=== PATIENT | female | born 1985 | race American Indian/Alaskan Native ===

== ENCOUNTER 2016-10-25 03:44 | Outpatient (CLI) | payer MEDICAID ==
[2016-10-25 04:16] VITALS: BP 119/67
[2016-10-25 05:09] LABS: Bilirubin,Urine NEG (Negative); Blood,Urine NEG (Negative); Ketones,Urine NEG (Negative); Leukocyte Esterase,Urine NEG (Negative); Nitrite,Urine NEG (Negative); Protein,Urine <15 mg/dL mg/dL (Negative); Urobilinogen,Urine < 2.0 mg/dL (<2.0)
== END 2016-10-25 04:50 | disposition left against medical advice (07) ==
LOC: TRG 03:44
PROVIDERS: ATTEND Obstetrics & Gynecology
DX: O47.1 False labor at or after 37 completed weeks of gestation (principal); Z3A.38 38 weeks gestation of pregnancy
CPT/HCPCS: 81001

== ENCOUNTER 2016-10-30 22:49 | Inpatient (IN) | payer MEDICAID ==
[2016-10-30] MEDS ORDERED: PHENERGAN PO PRN (23:21)
[2016-10-30] MEDS ORDERED: SUBLIMAZE IV PRN (23:21)
[2016-10-30] MEDS ORDERED: ePHEDrine SULFATE IV PRN (23:21)
[2016-10-30] MEDS ORDERED: BRETHINE SUB-Q PRN (23:21)
[2016-10-30] MEDS ORDERED: POLYCILLIN/NS 2 GM/100 ML 2 GM/100 ML BAG IV ONE (23:21)
[2016-10-30] MEDS ORDERED: MINERAL OIL PO PRN (23:21)
[2016-10-30] MEDS ORDERED: XYLOCAINE 2% INFILTRATI ONE (23:21)
[2016-10-30] MEDS ORDERED: STADOL IV PRN (23:21)
[2016-10-30] MEDS ORDERED: BRETHINE IVP PRN (23:21)
[2016-10-30] MEDS ORDERED: ZOFRAN IV PRN (23:21)
[2016-10-30] MEDS ORDERED: NARCAN 0.4 MG/1 ML IV PRN (23:21)
--- NOTE | 2016-10-30 23:29 | History and Physical Report ---
History of Present Illness Date of examination: 10/30/16 Chief complaint: Labor History of present illness: Pt is a 31yo BF EDC 11/03/16; EGA 39 3/7 weeks presents to L&D complaining of RUC's q 3-5 mins. She received care at [facility] without issues, however records are not available. Past History Past Medical History: no pertinent history Past Surgical History: no surgical history Social history: no significant social history, single - Obstetrical History Expected Date of Delivery: 11/03/16 Actual Gestation: 39 Week(s) 4 Day(s) : 1 Medications and Allergies Allergies Allergy/AdvReac Type Severity Reaction Status Date / Time No Known Allergies Allergy Unverified 10/25/16 04:16 Review of Systems All systems: negative - Vital Signs Vital signs: Vital Signs Temp Pulse Resp BP 98.2 F 97 H 18 121/68 10/30/16 23:09 10/30/16 23:09 10/30/16 23:09 10/30/16 23:09 Temp Pulse Resp BP Pulse Ox 98.2 F 97 H 18 121/68 10/30/16 23:09 10/30/16 23:09 10/30/16 23:09 10/30/16 23:09 - Physical Exam Breasts: Positive: deferred Cardiovascular: Regular rate Lungs: Positive: Clear to auscultation Abdomen: Positive: normal appearance Genitourinary (Female): Positive: normal external genitalia Vagina: Positive: normal moisture Uterus: Positive: enlarged Extremities: Positive: normal - Obstetrical FHR: category 1 Uterine Contraction Monitor Mode: External Cervical Dilatation: 5 Cervical Effacement Percentage: 70 station: -2 Uterine Contraction Pattern: Regular Uterine Tone Measurement Phase: Contraction Results Result Diagrams: 10/30/16 23:40 All other labs normal. Assessment and Plan - Patient Problems (1) 39 weeks gestation of Onset Date: 10/30/16 Current Visit: Yes Status: Acute Plan to address problem: A: IUP @ 39 3/7 weeks in labor Unknown GBS P: Admit to L&D for expectant vaginal delivery
[2016-10-30] MEDS ORDERED: PITOCin/NS 20 UNIT/1000ML DRIP 20 UNITS/1,000 ML BAG IV SCH (23:45)
[2016-10-30] MEDS ORDERED: PITOCin/NS 30 UNIT/500ML 30 UNITS/500 ML BAG IV SCH (23:45)
[2016-10-30] MEDS: LACTATED RINGERS 1,000 ML IV SCH (23:50)
[2016-10-31 00:11] LABS: Hematocrit 32.8 % (30.3-42.9); Hemoglobin 10.4 gm/dl (10.1-14.3); Mean Corpuscular HGB Conc 32 % (30-34); Mean Corpuscular Volume 80 fl (79-97); Red Blood Count 4.11 M/mm3 (3.65-5.03); Red Cell Distribution Width 17.5 % (13.2-15.2); White Blood Count 14.6 K/mm3 (4.5-11.0)
[2016-10-31 00:15] LABS: Mean Corpuscular Hemoglobin 25 pg (28-32); Platelet Count 243 K/mm3 (140-440)
[2016-10-31] MEDS: LACTATED RINGERS 1,000 ML IV SCH (01:32)
[2016-10-31] MEDS ORDERED: ePHEDrine SULFATE ONE (01:45)
[2016-10-31] MEDS ORDERED: ePHEDrine SULFATE IV PRN (02:23)
[2016-10-31] MEDS ORDERED: NARCAN 2 MG/2 ML IV PRN (02:23)
--- NOTE | 2016-10-31 02:23 | Anesthesia Consultation ---
Anesthesia Consult and Med Hx Date of service: 10/31/16 - Airway Anesthetic Teeth Evaluation: Good ROM Head & Neck: Adequate Mental/Hyoid Distance: Adequate Mallampati Class: Class II Intubation Access Assessment: Probably Good - Pulmonary Exam CTA: Yes - Cardiac Exam Cardiac Exam: RRR - Pre-Operative Health Status ASA Pre-Surgery Classification: ASA2 Proposed Anesthetic Plan: Epidural, Spinal - Pulmonary Hx Asthma: No COPD: No Hx Pneumonia: No - Cardiovascular System Hx Hypertension: No - Central Nervous System Hx Seizures: No Hx Psychiatric Problems: No - Endocrine Hx Renal Disease: No Hx End Stage Renal Disease: No Hx Hypothyroidism: No Hx Hyperthyroidism: No - Hematic Hx Anemia: No Hx Sickle Cell Disease: No - Other Systems Hx Alcohol Use: Yes - Additional Comments Anesthesia Medical History Comments: +IUP
[2016-10-31] MEDS ORDERED: fentaNYL-BUPIV 2 MCG/ML-0.125% 200 MCG/100 ML BAG EPIDURAL SCH (03:00)
[2016-10-31] MEDS ORDERED: POLYCILLIN/NS 1 GM/50 ML 1 GM/50 ML BAG IV SCH (03:23)
--- NOTE | 2016-10-31 07:24 | Progress Note ---
Assessment and Plan A: at 39 weeks in active labor -Cat 2 tracing (good return to baseline and moderate variability present) P: -Continue position changes and oxygen -Epidural off to allow better pushing -Reassess in ~ 30 minutes - Patient Problems (1) 39 weeks gestation of Onset Date: 10/30/16 Current Visit: Yes Status: Acute Subjective - Subjective Date of service: 10/31/16 Interval history: Patient seen and examined, 10 cm at 0 station, OP position. Patient having variable decelerations with each contraction but with good return to baseline. Pitocin currently discontinued and FSE placed Patient reports: new complaints, contractions Objective - Vital Signs Vital Signs: Vital Signs - 12hr 10/30/16 10/30/16 10/30/16 23:09 23:40 23:48 Temperature 98.2 F 99.5 F Pulse Rate 97 H 76 105 H Respiratory 18 20 Rate Blood Pressure 121/68 117/69 O2 Sat by Pulse 100 Oximetry 10/30/16 10/30/16 10/31/16 23:53 23:58 00:00 Temperature Pulse Rate 90 102 H Respiratory 20 Rate Blood Pressure O2 Sat by Pulse 99 97 Oximetry 10/31/16 10/31/16 10/31/16 00:02 00:03 00:08 Temperature Pulse Rate 96 H 106 H 79 Respiratory Rate Blood Pressure O2 Sat by Pulse 92 90 99 Oximetry 10/31/16 10/31/16 10/31/16 00:13 00:18 00:23 Temperature Pulse Rate 83 78 76 Respiratory Rate Blood Pressure O2 Sat by Pulse 98 99 98 Oximetry 10/31/16 10/31/16 10/31/16 00:26 00:28 00:33 Temperature Pulse Rate 78 72 88 Respiratory Rate Blood Pressure 117/68 O2 Sat by Pulse 99 97 Oximetry 10/31/16 10/31/16 10/31/16 00:38 00:43 00:48 Temperature Pulse Rate 100 H 77 72 Respiratory Rate Blood Pressure O2 Sat by Pulse 96 98 96 Oximetry 10/31/16 10/31/16 10/31/16 00:51 00:53 00:58 Temperature Pulse Rate 86 84 86 Respiratory Rate Blood Pressure O2 Sat by Pulse 93 97 97 Oximetry 10/31/16 10/31/16 10/31/16 01:03 02:03 02:04 Temperature Pulse Rate 83 92 H 104 H Respiratory Rate Blood Pressure O2 Sat by Pulse 96 98 94 Oximetry 10/31/16 10/31/16 10/31/16 02:05 02:07 02:08 Temperature Pulse Rate 107 H 94 H 92 H Respiratory Rate Blood Pressure 112/55 112/61 O2 Sat by Pulse 100 Oximetry 10/31/16 10/31/16 10/31/16 02:09 02:11 02:12 Temperature Pulse Rate 96 H 84 71 Respiratory Rate Blood Pressure 111/64 86/66 96/54 O2 Sat by Pulse Oximetry 10/31/16 10/31/16 10/31/16 02:13 02:15 02:17 Temperature Pulse Rate 89 76 121 H Respiratory Rate Blood Pressure 99/64 101/63 O2 Sat by Pulse 97 83 L Oximetry 10/31/16 10/31/16 10/31/16 02:18 02:19 02:21 Temperature Pulse Rate 93 H 90 95 H Respiratory Rate Blood Pressure 108/57 111/70 112/63 O2 Sat by Pulse 97 Oximetry 10/31/16 10/31/16 10/31/16 02:23 02:25 02:28 Temperature Pulse Rate 112 H 89 78 Respiratory Rate Blood Pressure 106/59 113/63 O2 Sat by Pulse 98 100 Oximetry 10/31/16 10/31/16 10/31/16 02:32 02:33 02:37 Temperature Pulse Rate 85 87 99 H Respiratory Rate Blood Pressure 102/55 103/57 O2 Sat by Pulse 99 Oximetry 10/31/16 10/31/16 10/31/16 02:38 02:42 02:43 Temperature Pulse Rate 79 90 98 H Respiratory Rate Blood Pressure 111/62 O2 Sat by Pulse 100 99 Oximetry 10/31/16 10/31/16 10/31/16 02:46 02:48 02:53 Temperature Pulse Rate 88 115 H 80 Respiratory Rate Blood Pressure O2 Sat by Pulse 94 99 100 Oximetry 10/31/16 10/31/16 10/31/16 02:58 03:03 03:08 Temperature Pulse Rate 92 H 97 H 94 H Respiratory Rate Blood Pressure 108/63 O2 Sat by Pulse 99 98 100 Oximetry 10/31/16 10/31/16 10/31/16 03:13 03:15 03:18 Temperature Pulse Rate 87 97 H 82 Respiratory Rate Blood Pressure 107/67 O2 Sat by Pulse 99 99 Oximetry 0810/31/16 10/31/16 03:23 03:28 03:29 Temperature Pulse Rate 87 91 H 89 Respiratory Rate Blood Pressure 108/65 O2 Sat by Pulse 99 100 Oximetry 10/31/16 10/31/16 10/31/16 03:33 03:38 03:43 Temperature Pulse Rate 93 H 89 90 Respiratory Rate Blood Pressure O2 Sat by Pulse 100 100 100 Oximetry 10/31/16 10/31/16 10/31/16 03:44 03:48 03:53 Temperature Pulse Rate 97 H 98 H 91 H Respiratory Rate Blood Pressure 109/59 O2 Sat by Pulse 98 99 Oximetry 10/31/16 10/31/16 10/31/16 03:58 04:00 04:03 Temperature 98.8 F Pulse Rate 90 91 H Respiratory 18 Rate Blood Pressure 111/61 111/61 O2 Sat by Pulse 93 100 77 L Oximetry 10/31/16 10/31/16 10/31/16 05:05 05:58 07:16 Temperature 100.1 F H Pulse Rate 91 H 86 93 H Respiratory 18 Rate Blood Pressure 111/61 107/57 101/56 O2 Sat by Pulse 100 86 Oximetry 10/31/16 07:17 Temperature 97.6 F Pulse Rate 79 Respiratory 20 Rate Blood Pressure 107/57 O2 Sat by Pulse Oximetry - Exam FHR: category 2 Cervical Dilatation: 10 station: 0 - Labs Labs: Abnormal Labs 10/30/16 23:40 WBC 14.6 H MCH 25 L RDW 17.5 H Laboratory Results - last 24 hr 10/30/16 10/30/16 23:40 23:40 WBC 14.6 H RBC 4.11 Hgb 10.4 Hct 32.8 MCV 80 MCH 25 L MCHC 32 RDW 17.5 H Plt Count 243 Blood Type O POSITIVE Antibody Screen Negative
[2016-10-31] MEDS ORDERED: BICITRA ONE (08:17)
[2016-10-31] MEDS ORDERED: PEPCID IV ONE (08:17)
[2016-10-31] MEDS ORDERED: REGLAN ONE (08:17)
--- NOTE | 2016-10-31 08:29 | Anesthesia Day of Surgery ---
Anesthesia Day of Surgery - Day of Surgery Patient Examined: Yes Patient H&P Reviewed: Yes Patient is NPO: Yes
[2016-10-31] MEDS ORDERED: MORPHINE ONE ×2 (09:02)
[2016-10-31] MEDS ORDERED: WATER FOR IRRIG STERILE IR ONE (09:23)
[2016-10-31] MEDS ORDERED: NACL 0.9% IR ONE (09:23)
[2016-10-31] MEDS ORDERED: DILAUDID IV PRN (09:30)
--- NOTE | 2016-10-31 09:43 | Event Note ---
Date: 10/31/16 Patient with continuing deep variable decelerations and no descent. Patient appears an OP position we'll proceed to primary
--- NOTE | 2016-10-31 09:49 | Operative Report ---
Operative Report Operative Report: DATE: 10/31/2016 PREOPERATIVE DIAGNOSIS: 31-year-old at 39 weeks, category 2 tracing, arrest of descent POSTOP DIAGNOSIS: As above plus tight constriction between the upper fundus of the uterus and lower segment (Bandls band) NAME OF PROCEDURE: Primary low transverse section SURGEON: REYNA SCHMIDT MD MUSIC ENGINEER: [] ANESTHESIA: Epidural EBL: 600 mL PATHOLOGY SPECIMEN: None URINE OUTPUT: 300 mL FINDINGS: Male infant in cephalic presentation, OP position, time of was 8 :57 AM, infant weight was 6 lbs. 6 oz. or 2884 g, Apgars were 8 and 9, Bandl's band noted between fundus and lower segment, otherwise normal uterus tubes and ovaries bilaterally. DESCRIPTION OF PROCEDURE: After informed consent, patient was taken to the operating room where she was prepped and draped in a sterile fashion. Pfannestial incision was performed 2 cm above the pubic symphysis. This was then carried down to the underlying rectus fascia which was scored in the midline. The fascial incision was extended laterally with the use of Esquivel scissors, anterior leaf was then grasped with Cazen[place]'s elevated dissected sharply and bluntly off the underlying rectus. In a similar fashion the inferior leaf was grasped elevated dissected sharply and bluntly off the underlying rectus. The rectus was in the midline and the peritoneal cavity was entered without difficulty. After good visualization of the bladder the peritoneal layer was extended up and down; bladder blade was placed in the patient's pelvic cavity, bladder flap was created without difficulty. A hysterotomy incision was then performed with clear amniotic fluid noted. Infant in cephalic presentation was delivered without difficulty in the usual manner; cord was clamped cut and infant was handed over to waiting NICU staff. The placenta was then delivered intact, the uterus was then exteriorized cleared of all clots and debris. Her hysterotomy incision was then closed in a running locked fashion with 0 Vicryl on a CTX; using the same suture were able to imbricate the initial layer. The uterus was then returned to the patient's pelvic cavity; the peritoneal edges were grasped with hemostats and Suzanne's; irrigation was used to clear the gutters of all clots and debris. Tisseel hemostatic agent was applied copiously over the hysterotomy incision. The bladder flap was then closed in a running fashion with 3-0 Vicryl. The peritoneal layer was closed in a running fashion with 3-0 Vicryl; the rectus was reapproximated with a single [id number] stitch. The fascia was then closed in a running fashion with 0 Vicryl; the subcutaneous layer was reapproximated with a single [id number] stitch. The skin was then closed in a subcuticular manner with 4-0 Monocryl. She tolerated the procedure well lap and instrument counts were correct 2, she did receive 2 grams of Ancef prior to the procedure. She is transferred to PACU in stable condition.
[2016-10-31] MEDS ORDERED: PITOCin/NS 20 UNIT/1000ML DRIP 20 UNITS/1,000 ML BAG IV SCH (10:00)
[2016-10-31] MEDS ORDERED: TORADOL IV PRN (10:00)
--- NOTE | 2016-10-31 10:09 | Post Anesthesia Evaluation ---
- Post Anesthesia Evaluation Patient Participated: Yes Airway Patent: Yes Stable Respiratory Function: Yes Nausea/Vomiting: Yes Temp > 96.8F: Yes Pain Manageable: Yes Adequeate Hydration: Yes Anesthesia Complications: No Block Receding Appropriately: Yes Patient on Ventilator: No
[2016-10-31] MEDS ORDERED: LANSINOH TP PRN (10:30)
[2016-10-31] MEDS ORDERED: D5LR 1,000 ML IV SCH (10:30)
[2016-10-31] MEDS ORDERED: TYLENOL PO PRN (10:30)
[2016-10-31] MEDS ORDERED: TUCKS PAD TP PRN (10:30)
[2016-10-31] MEDS ORDERED: NARCAN 0.4 MG/1 ML IV PRN (11:00)
[2016-10-31] MEDS ORDERED: MYLICON PO PRN (11:00)
[2016-10-31] MEDS ORDERED: PHENERGAN PR PRN (11:00)
[2016-10-31] MEDS ORDERED: SODIUM CHLORIDE FLUSH SYRINGE 10 ML IV PRN (11:00)
[2016-10-31] MEDS: PRENATAL VITAMIN PO SCH (12:00)
[2016-10-31] MEDS: FEOSOL PO SCH (12:00)
[2016-10-31] MEDS ORDERED: ZOFRAN IV PRN (12:53)
[2016-10-31] MEDS: TORADOL IV PRN ×2 (14:20→20:57)
[2016-10-31] MEDS: BENADRYL IV PRN ×2 (15:04→20:47)
[2016-10-31] MEDS ORDERED: MILK OF MAGNESIA PO PRN (22:00)
[2016-10-31] MEDS ORDERED: ANUCORT-HC PR PRN (22:00)
[2016-10-31 23:28] LABS: Hematocrit 25.9 % (30.3-42.9); Hemoglobin 8.4 gm/dl (10.1-14.3)
[2016-11-01] MEDS: PERCOCET 5/325 PO PRN ×2 (08:48→18:22)
--- NOTE | 2016-11-01 09:48 | Progress Note ---
Assessment and Plan POD# 1 s/p Primary LTCS -Doing well P: -Continue routine postop care -Anticipate discharge in 24-48 hours - Patient Problems (1) Status post primary low transverse section Current Visit: Yes Status: Acute (2) 39 weeks gestation of Onset Date: 10/30/16 Current Visit: Yes Status: Acute Subjective - Subjective Date of service: 11/01/16 Principal diagnosis: POD # 1 Interval history: Patient seen and examined, stable and doing well. No shortness of breath or chest pain no fever or chills, adequate bowel bladder function, ambulating to bathroom without difficulty Patient reports: appetite normal, voiding normally, pain well controlled, ambulating normally, no dizzy ambulation, no nauseated [place]: doing well Objective - Vital Signs Latest vital signs: Vital Signs Temp Pulse Resp BP Pulse Ox 11/01/16 08:48 20 11/01/16 08:00 97.9 F 72 18 107/57 11/01/16 04:15 98.8 F 88 18 106/61 11/01/16 00:30 98.7 F 89 18 103/59 10/31/16 20:57 18 10/31/16 20:35 98.8 F 89 18 119/70 10/31/16 16:15 98.7 F 95 H 16 95/53 10/31/16 11:00 97.9 F 76 20 120/61 10/31/16 10:45 97.9 F 10/31/16 10:20 98 H 17 125/78 99 10/31/16 10:15 99.0 F 10/31/16 10:10 84 9 L 115/71 100 10/31/16 10:00 75 13 121/71 100 10/31/16 09:50 98.1 F 77 11 L 121/63 100 10/31/16 09:49 82 98 Intake and Output 10/31/16 11/01/16 11/01/16 22:59 06:59 14:59 Intake Total 720 360 Output Total 1700 400 Balance -980 -40 Intake: Oral 720 360 Output: Urine 1700 400 Indwelling Catheter 1700 Void 400 Other: Total, Intake Amount 240 120 Total, Output Amount 800 400 - Exam Abdomen: Present: normal appearance, soft. Absent: distention, tenderness, guarding, rigidity Uterus: Present: fundal height below umbilicus. Absent: tenderness Extremities: Absent: tenderness Incision: Present: dressed - Labs Labs: Abnormal lab results 10/31/16 Range/Units 22:47 Hgb 8.4 L (10.1-14.3) gm/dl Hct 25.9 L D (30.3-42.9) %
--- NOTE | 2016-11-01 10:53 | Progress Note ---
Subjective Date of service: 11/01/16 Principal diagnosis: POD # 1 Interval history: 1st POD after Patient is in the bed, comfortable. Pain is well controlled with pain meds. Ambulated well. No residual neurological deficit. Some pruritus is controlled with benadryl. No anesthesia complications Objective - Constitutional Vitals: Vital Signs - 12hr 11/01/16 11/01/16 11/01/16 00:30 04:15 08:00 Temperature 98.7 F 98.8 F 97.9 F Pulse Rate 89 88 72 Respiratory 18 18 18 Rate Blood Pressure 103/59 106/61 107/57 11/01/16 08:48 Temperature Pulse Rate Respiratory 20 Rate Blood Pressure - Labs CBC & Chem 7: 10/31/16 22:47 Labs: Abnormal lab results 10/31/16 Range/Units 22:47 Hgb 8.4 L (10.1-14.3) gm/dl Hct 25.9 L D (30.3-42.9) %
[2016-11-01] MEDS: MOTRIN PO PRN (22:32)
--- NOTE | 2016-11-02 05:30 | Progress Note ---
Assessment and Plan POD# 2 s/p Primary LTCS -Doing well P: -Continue routine postop care -Anticipate discharge in 24-48 hours - Patient Problems (1) Status post primary low transverse section Current Visit: Yes Status: Acute (2) 39 weeks gestation of Onset Date: 10/30/16 Current Visit: Yes Status: Acute Subjective - Subjective Date of service: 11/02/16 Principal diagnosis: POD # 2 Interval history: Patient seen and examined, stable and doing well. No shortness of breath or chest pain no fever or chills, adequate bowel bladder function, ambulating to bathroom without difficulty Patient reports: appetite normal, voiding normally, pain well controlled, flatus , ambulating normally, no dizzy ambulation, no nauseated [place]: doing well Objective - Vital Signs Latest vital signs: Vital Signs Temp Pulse Resp BP 11/01/16 18:22 20 11/01/16 16:14 98.4 F 86 20 94/54 11/01/16 08:48 20 11/01/16 08:00 97.9 F 72 18 107/57 Intake and Output 11/01/16 11/01/16 11/02/16 14:59 22:59 06:59 Intake Total 120 Output Total 300 Balance -180 Intake: Oral 120 Output: Urine 300 Void 300 Other: Total, Intake Amount 120 Total, Output Amount 300 - Exam Abdomen: Present: normal appearance, soft. Absent: distention, tenderness, guarding, rigidity Uterus: Present: fundal height below umbilicus. Absent: tenderness Extremities: Present: normal Incision: Present: dry, intact
--- NOTE | 2016-11-02 05:32 | Discharge Summary ---
Providers - Providers Date of Admission: 10/30/16 23:31 Date of discharge: 11/03/16 Attending physician: DIANELYS MOODY Primary care physician: DIANELYS MOODY Hospitalization Reason for admission: active labor, IUP at term Delivery: Procedure: primary low transverse Incision: dry, intact Other procedures: none complications: none Discharge diagnosis: IUP at term delivered Tam[place] baby: male Hospital course: Uncomplicated postoperative course Condition at discharge: Good Disposition: DC-01 TO HOME OR SELFCARE - Discharge Diagnoses (1) Status post primary low transverse section Status: Acute (2) 39 weeks gestation of Status: Acute Plan - Discharge Medications Prescriptions: Ibuprofen [Motrin 600 MG tab] 600 mg PO Q8H PRN #30 tablet PRN Reason: Pain Multivitamin with Iron [Multivitamins with Iron] 1 each PO DAILY #30 tablet oxyCODONE /ACETAMINOPHEN [Percocet 5/325] 1 tab PO Q6HR PRN #30 tablet PRN Reason: Pain - Provider Discharge Summary Activity: no sex for 6 weeks, no heavy lifting 4 weeks, no strenuous exercise Diet: routine Additional instructions: [] Smoking cessation referral if applicable(refer to patient education folder for contact #) [] Refer to [facility] Booklet Call your doctor immediately for: * Fever > 100.5 * Heavy vaginal bleeding ( >1 pad per hour) * Severe persistent headache * Shortness of breath * Reddened, hot, painful area to leg or breast * Drainage or odor from incision. * Keep incision clean and dry at all times and follow doctor's instructions regarding bathing/showering - Follow up plan Follow up: DIANELYS MOODY MD [Primary Care Provider] - 7 Days
[2016-11-02] MEDS: MOTRIN PO PRN ×2 (05:42→13:42)
[2016-11-02] MEDS: PERCOCET 5/325 PO PRN ×2 (05:43→13:42)
[2016-11-02] MEDS ORDERED: BOOSTRIX IM ONE (06:00)
[2016-11-02] MEDS: FEOSOL PO SCH (10:27)
[2016-11-02] MEDS: PRENATAL VITAMIN PO SCH (10:27)
[2016-11-02 15:16] VITALS: BP 99/60
== END 2016-11-02 15:00 | disposition home or self-care (01) | DRG 766 ==
LOC: TRG 22:49 → LD 23:31 → OB 10-31 10:57
PROVIDERS: ADMIT Obstetrics & Gynecology; ATTEND Obstetrics & Gynecology
PROC: 10D00Z1 Extraction of Products of Conception, Low, Open Approach (ICD-10-PCS; principal; 2016-10-31)
DX: O62.4 Hypertonic, incoordinate, and prolonged uterine contractions (principal); O62.1 Secondary uterine inertia; Z3A.39 39 weeks gestation of pregnancy; Z37.0 Single live birth
CPT/HCPCS: 36415; 85014; 85018; 85027; 86850; 86900; 86901; 90471; 90715; 99211; A6250; G0463; J0290; J0595; J1170; J1200; J1885; J2270; J2405; J2590; J2765; J7120; J7121